=== PATIENT | female | born 1930 | race Caucasian/White ===

== ENCOUNTER 2019-05-14 11:31 | Inpatient (IN) | payer MEDICARE, OTHER ==
[~2019-05-14] VITALS: Ht 170.2 cm; Wt 56.7 kg
[2019-05-14] MEDS ORDERED: ADENOSINE 6 MG/2 ML VIAL ONE (11:44)
--- NOTE | 2019-05-14 11:44 | NUR ---
"Chest Pain started this am" Pt coole to touch [id number] on monitor" PT TO BED 5, PLACED PT ON MONITOR, MD AT BEDSIDE FOR EVAL
[2019-05-14 12:00] LABS: BASOPHILS # (AUTO) 0.1 /CMM (0.0-0.2); BASOPHILS % (AUTO) 0.6 % (0.0-2.0); EOSINOPHILS % (AUTO) 1.2 % (0.0-6.0); HEMATOCRIT 40 % (33-45); LYMPHOCYTES # (AUTO) 2.1 /CMM (0.8-4.8); LYMPHOCYTES % (AUTO) 23.1 % (20.0-44.0); MEAN CORPUSCULAR HGB CONC 33 g/dl (31.0-36.0); MEAN CORPUSCULAR VOLUME 88 fL (82-100); MONOCYTES # (AUTO) 0.5 /CMM (0.1-1.30); MONOCYTES % (AUTO) 5.8 % (2.0-12.0); NEUTROPHILS # (AUTO) 6.4 /CMM (1.8-8.9); NEUTROPHILS % (AUTO) 69.3 % (43.0-81.0); PLATELET COUNT (AUTO) 282 /CMM (150-450); RED BLOOD CELL COUNT(AUTO) 4.54 MIL/uL (4.0-5.2); WHITE BLOOD COUNT (AUTO) 9.2 K/uL (4.3-11.0)
[2019-05-14] MEDS ORDERED: IV NS 0.9% 500 ML BAG IV ONE (12:00)
[2019-05-14] MEDS ORDERED: ADENOSINE 6 MG/2 ML VIAL IVP ONE (12:00)
[2019-05-14 12:06] LABS: CALCIUM, SERUM 8.9 mg/dL (8.5-10.1); CARBON DIOXIDE 21 mmol/L (21-32); CHLORIDE 102 mmol/L (98-107); CREATININE 1.7 mg/dL (0.6-1.3); GLUCOSE 236 mg/dL (74-106); POTASSIUM 3.8 mmol/L (3.5-5.1); SODIUM SERUM 139 mmol/L (136-145); UREA NITROGEN, BLOOD 13 mg/dL (7-18)
--- NOTE | 2019-05-14 12:25 | NUR ---
DR ALY PAGEDari
[2019-05-14] MEDS ORDERED: ALEN70TA6 PO (12:31)
[2019-05-14] MEDS ORDERED: VITA1TAB15 PO (12:31)
[2019-05-14] MEDS ORDERED: MECL-102 PO (12:31)
[2019-05-14] MEDS ORDERED: ASPI-605 PO (12:31)
[2019-05-14] MEDS ORDERED: CALC-718 PO (12:31)
[2019-05-14] MEDS ORDERED: RIVA1PAT TD (12:31)
[2019-05-14] MEDS ORDERED: MEMA10TA PO (12:31)
[2019-05-14] MEDS ORDERED: SITA50TA PO (12:31)
[2019-05-14] MEDS ORDERED: METO50TA16 PO (12:31)
[2019-05-14] MEDS ORDERED: TRAM50TA2 PO (12:31)
[2019-05-14] MEDS ORDERED: QUET50TA PO (12:31)
[2019-05-14] MEDS ORDERED: MULT-1017 PO (12:31)
[2019-05-14] MEDS ORDERED: ONDA4TAB11 PO (12:31)
[2019-05-14] MEDS ORDERED: HYDR-4076 PO (12:31)
[2019-05-14] MEDS ORDERED: BRIN10DR EACHEYE (12:31)
[2019-05-14] MEDS ORDERED: CHOL20004 PO (12:31)
[2019-05-14 13:22] LABS: MAGNESIUM 1.4 mg/dL (1.8-2.4)
--- NOTE | 2019-05-14 13:34 | NUR ---
RECIEVED ROOM 104
--- NOTE | 2019-05-14 13:53 | NUR ---
report given to regan vines for merced pt will be transported to 1st floor
[2019-05-14 13:54] LABS: THYROID STIMULATING HORMONE 3.187 uIU/mL (0.358-3.74)
[2019-05-14 14:15] VITALS: BP 109/55
--- NOTE | 2019-05-14 14:15 | NUR ---
CERTIFIED PHLEBOTOMY TECHNICIAN NOTES OPENING (ADMISSION) RECEIVED PT FROM [facility]. PT IN ON 2 L NC NO LABORED BREATHING NOTED AT THIS TIME. REDNESS NOTED ON BILATERAL HEELS, PHOTO TAKEN. RAC 20G SL PATENT FLUSHED WELL WITH NS. ALL SAFETY MEASURES OBSERVED PUT BED ON LOWEST POSITION LOCKED, CALL LIGHT WITHIN REACH. PT HR IS 84 SINUS RHYTHM.WILL CONTINUE TO MONITOR.
[2019-05-14] MEDS ORDERED: ONDANSETRON 4 MG TAB.RAPDIS PO PRN (15:00)
[2019-05-14] MEDS ORDERED: TRAMADOL HCL 50 MG TABLET PO PRN (15:00)
[2019-05-14] MEDS ORDERED: DEXTROSE 50%-WATER 50 ML DISP.SYRIN IV PRN (15:00)
[2019-05-14 16:00] VITALS: BP 98/53
[2019-05-14] MEDS: Magnesium 1GM/D5W 100ML PREMIX 100 ML IV SCH ×2 (16:45→18:11)
[2019-05-14] MEDS ORDERED: hydrALAZINE HCL 25 MG TABLET PO SCH (17:00)
[2019-05-14] MEDS ORDERED: BRINZOLAMIDE 1 % OPHTH SOLN 10 ML BOTTLE EACHEYE SCH (17:00)
[2019-05-14] MEDS: BLOOD SUGAR DIAGNOSTIC 1 EACH STRIP IN SCH ×2 (17:26→22:22)
[2019-05-14] MEDS: DORZOLAMIDE OPTH 2% 10 ML BOTTLE EACHEYE SCH (17:27)
[2019-05-14] MEDS: MECLIZINE HCL 25 MG TABLET PO SCH (17:32)
[2019-05-14] MEDS: INSULIN REGULAR, HUMAN 100 UNIT/ML 3 ML VIAL SQ PRN ×2 (17:39→21:24)
[2019-05-14] MEDS: NITROGLYCERIN 30 GM TUBE TP SCH (17:45)
--- NOTE | 2019-05-14 19:00 | NUR ---
TAPE EDGE MACHINE OPERATOR NOTES PT SITTING IN BED A/O X 3. FAMILY AT BED SIDE. HR 84 SR. RIGHT AC 20 G FLUSHED WELL, INTACT. NO SIGNS OF SOB AND DISCOMFORT NOTED. PATIENT DENIES ANY PAIN. ALL SAFETY MEASURES OBSERVED, BED AT LOWEST POSITION LOCKED, CALL LIGHT WITHIN REACH, SIDE RAILS UP X2. ENDORSED TO VACUUM CLEANER ASSEMBLER NURSE.
--- NOTE | 2019-05-14 19:30 | NUR ---
SCIENCE SPECIALIST NOTE RECEIVED PATIENT WITH NO DISTRESS AND NO SIGNS OF PAIN OR ANY SOB. PATIENT IS ON 2L OF O2 WITH NASAL CANNULA ON TELE MONITOR WITH SINUS RHYTHM AND HR OF 80. HAS A RAC #20G PATENT AND FLUSHING WELL. PATIENT IS AMBULATORY WITH ASSISTANCE. ALL SAFETY PRECAUTIONS ARE APPLIED. BED IS LOW, SIDE RAILS UP X2, BED ALARMS ON AND CALL LIGHT WITHIN REACH. WILL CONTINUE TO MONITOR.
[2019-05-14 20:00] VITALS: BP 119/70
--- NOTE | 2019-05-14 20:10 | NUR ---
DRIVER/GUIDE NOTE CALLED DR COPELAND IN REGARDS TO PATIENTS TROPONIN LEVEL GOING UP. HE SAID LEVEL WAS EXPECTED AND THAT THERE IS NO ORDER NEEDED.
[2019-05-14] MEDS ORDERED: ENOXAPARIN SODIUM 40 MG/0.4 ML DISP.SYRIN SQ SCH (21:00)
[2019-05-14] MEDS ORDERED: METOPROLOL TARTRATE 25 MG TABLET PO SCH (21:00)
[2019-05-14] MEDS: QUETIAPINE FUMARATE 25 MG TABLET PO SCH (21:08)
[2019-05-14] MEDS: METOPROLOL TARTRATE 25 MG TABLET PO SCH (21:12)
[2019-05-14] MEDS: ENOXAPARIN SODIUM 30 MG/0.3 ML DISP.SYRIN SQ SCH (21:13)
[2019-05-15] VITALS: BP_SYST 155; BP_SYST 91; BP_DIAS 56; BP_DIAS 87
[2019-05-15] MEDS: NITROGLYCERIN 30 GM TUBE TP SCH ×4 (00:21→17:10)
[2019-05-15 04:00] VITALS: BP 107/58
[2019-05-15 06:20] LABS: BASOPHILS % (AUTO) 0.7 % (0.0-2.0); EOSINOPHILS % (AUTO) 2.9 % (0.0-6.0); HEMATOCRIT 32 % (33-45); HEMOGLOBIN 10.7 g/dL (11.5-14.8); LYMPHOCYTES % (AUTO) 36.1 % (20.0-44.0); MEAN CORPUSCULAR HGB CONC 33 g/dl (31.0-36.0); MEAN CORPUSCULAR VOLUME 86 fL (82-100); MONOCYTES # (AUTO) 0.4 /CMM (0.1-1.30); MONOCYTES % (AUTO) 6.6 % (2.0-12.0); NEUTROPHILS # (AUTO) 2.9 /CMM (1.8-8.9); NEUTROPHILS % (AUTO) 53.7 % (43.0-81.0); PLATELET COUNT (AUTO) 181 /CMM (150-450); RED BLOOD CELL COUNT(AUTO) 3.74 MIL/uL (4.0-5.2); WHITE BLOOD COUNT (AUTO) 5.5 K/uL (4.3-11.0)
[2019-05-15 06:41] LABS: ALANINE AMINOTRANSFERASE 9 U/L (12-78); ALBUMIN 2.6 g/dL (3.4-5.0); ALKALINE PHOSPHATASE 64 U/L (46-116); ASPARTATE AMINOTRANSFERASE 13 U/L (15-37); BILIRUBIN,TOTAL 0.5 mg/dL (0.2-1.0); CALCIUM, SERUM 8.1 mg/dL (8.5-10.1); CARBON DIOXIDE 25 mmol/L (21-32); CHLORIDE 104 mmol/L (98-107); CREATININE 1.7 mg/dL (0.6-1.3); GLUCOSE 115 mg/dL (74-106); MAGNESIUM 1.9 mg/dL (1.8-2.4); PHOSPHORUS 4.5 mg/dL (2.5-4.9); POTASSIUM 3.9 mmol/L (3.5-5.1); SODIUM SERUM 139 mmol/L (136-145); TOTAL PROTEIN, SERUM 6.4 g/dL (6.4-8.2); UREA NITROGEN, BLOOD 16 mg/dL (7-18)
--- NOTE | 2019-05-15 07:00 | NUR ---
RN NOTE RECEIVED PATIENT ON BED, ALERT, RESPONSE TO VERBAL STIMULI, DUTCH SPEAKING , PITER CHEST PAIN ,ON O2L O2 N/C , NO SOB NOTED ON TELE SR HR IN 60'S . R AC IV G 20 CLEAN, DRY AND INTACT, ALL SAFETY PRECAUTIONS ARE APPLIED. BED IS LOCKED AND IN LOWEST POSITION, SIDE RAILS UP X3, BED ALARMS ON AND CALL LIGHT WITHIN REACH. WILL CONTINUE TO MONITOR.
--- NOTE | 2019-05-15 07:12 | NUR ---
FILLER BLOCK INSERTER REMOVER CLOSING NOTE PATIENT IS SLEEPING IN BED WITH NO SIGNS OF DISTRESS. ALL SAFETY PRECAUTIONS ARE APPLIED WITH BED LOW, CALL LIGHT WITHIN REACH, BED ALARM ON. ENDORSED PATIENT TO AM NURSE.
[2019-05-15 08:00] VITALS: BP 124/58
[2019-05-15] MEDS: BLOOD SUGAR DIAGNOSTIC 1 EACH STRIP IN SCH ×4 (08:27→22:13)
[2019-05-15] MEDS: VITAMIN B COMP W-C 1 TAB TABLET PO SCH (08:28)
[2019-05-15] MEDS: ASPIRIN EC 81 MG TABLET.DR PO SCH (08:28)
[2019-05-15] MEDS: MULTIVIT W/MINERALS 1 TAB TABLET PO SCH (08:28)
[2019-05-15] MEDS: MEMANTINE HCL 5 MG TABLET PO SCH (08:28)
[2019-05-15] MEDS: LINAGLIPTIN 5 MG TABLET PO SCH (08:28)
[2019-05-15] MEDS: MECLIZINE HCL 25 MG TABLET PO SCH ×2 (08:28→16:17)
[2019-05-15] MEDS: CALCIUM CARB 600MG /VIT D 1 EACH TABLET PO SCH (08:29)
[2019-05-15] MEDS: PANTOPRAZOLE 40 MG TABLET.DR PO SCH (08:29)
[2019-05-15] MEDS: METOPROLOL TARTRATE 25 MG TABLET PO SCH ×2 (08:30→21:14)
[2019-05-15] MEDS: DORZOLAMIDE OPTH 2% 10 ML BOTTLE EACHEYE SCH ×2 (08:38→16:22)
[2019-05-15] MEDS: RIVASTIGMINE TARTRATE 4.6 MG PATCH.TD24 TD SCH (09:26)
[2019-05-15] MEDS: IV NS 0.9% 1,000 ML IV PRN ×2 (09:27→20:08)
[2019-05-15 12:00] VITALS: BP 110/49
--- NOTE | 2019-05-15 13:00 | NUR ---
RN NOTES TELEPHONE CONSENT OBTAINED FROM PT'S SON FOR STRESS TEST IN AM .
--- NOTE | 2019-05-15 14:00 | NUR ---
RN NOTES PT IS VERY FORGETFUL AND KEEP PULLING ON HER TELE BOX AND IV SITES AND TRYING TO GET OUT OF THE BED, PT REORIENTED TO ROOM AND SURROUNDING IN MALAGASY LANGUAGE. SR UP x3, CALL LIGHT WITHIN EASY REACH, BED ALARM ON . PT'S SON NOTIFED.CONTINUE TO MONITOR .
[2019-05-15 16:00] VITALS: BP 108/87
[2019-05-15] MEDS: INSULIN REGULAR, HUMAN 100 UNIT/ML 3 ML VIAL SQ PRN ×2 (17:12→21:46)
--- NOTE | 2019-05-15 18:00 | NUR ---
RN NOTES PT STABLE, SUPPORTIVE FAMILY AT THE BEDSIDE, VSS STABLE, PT IS CALM , WILL ENDORSE TO PRODUCTION SERVICE MANAGER NURSE FOR CONTINUITY OF CARE.
--- NOTE | 2019-05-15 19:06 | NUR ---
FAMILY REQUESTING SITTER,PATIENT PULL IV 2X FORGETFUL,HIGH RIDK FOR FALL,CALL LIGHT AT REACH,BED ALARM ON.SAFETY PRECAUTION OBSERVED. DR. ALY MADE AWARE,FAMILY DOESNOT WANT RESTRAIN,NURSING SUP MADE AWARE.
--- NOTE | 2019-05-15 19:30 | NUR ---
AIRCRAFT LOADMASTER SUPERINTENDENT OPENING NOTES RECEIVED PATIENT IN NO SIGN OF DISTRESS OR DISCOMFORT. AND DAUGHTER AT BEDSIDE. PATIENT IS ON ROOM AIR WITH NO SIGNS OF SOB. PATIENT ALSO HAS AN IV ACCESS ON RIGHT FOREARM WITH NS RUNNING AT 125ML/HR. PATIENT IS AMBULATORY WITH ASSISTANCE TO GO TO RESTROOM. PATIENT IS ON THE MONITOR WITH SINUS RHYTHM AND HR OF 79. ALL SAFETY PRECAUTIONS APPLIED BED PLACED IN LOW POSITION, BED ALARM ON, CALL LIGHT WITHIN REACH AND SIDE RAILS UP X3. WILL CONTINUE TO MONITOR
[2019-05-15 20:00] VITALS: BP 122/68
[2019-05-15] MEDS: QUETIAPINE FUMARATE 25 MG TABLET PO SCH (21:14)
[2019-05-15] MEDS: ENOXAPARIN SODIUM 30 MG/0.3 ML DISP.SYRIN SQ SCH (21:23)
--- NOTE | 2019-05-15 22:18 | NUR ---
RN NOTES 2099 PULLED OUT IV AND TELE MONITOR; SPOKE TO IC ENGINEER RE SITTER DUE TO FAMILY REFUSED RESTRAINTS. UNABLE TO FIND AT THE MOMENT; ANOTHER OPTION IS TO TRANSFER PATIENT TO ANOTHER ROOM TO COMBINE SITTERS. SPOKE TO FAMILY, KIMBERLY, REFUSED RESTRAINT AND TRANSFER. EXPLAINED TO HIM ABOUT SAFETY OF THE PATIENT. PRIMARY RN STAYS CLOSE TO HER ROOM TO PREVENT FALLS; BED ALARM IS ALSO ON BUT IT WILL NOT PREVENT HER FROM PULLING OUT IV AND TELE. FINALLY AGREED TO TRANSFER BUT NOT RESTRAINT EVEN JUST FOR THE NIGHT AND WILL HAVE A SITTER IN AM. LEIGHANN, IC ENGINEER MADE AWARE. 2114 UNABLE TO COMBINE WITH A SITTER PATIENT; STILL LOOKING FOR SITTER. FOR THE MEANTIME ASKED KIMBERLY IF OK TO USE MITTENS SINCE WE WILL NOT TRANSFER HER ANYMORE. FINALLY AGREED WITH MITTENS. INSERTED IV TO LEFT ARM AND CONNECTED BACK TO TELE MONITOR; WRAPPED IV SITE WITH KERLIX AND PUT ON ARM SLEEVES AND MITTENS. 2129 PATIENT AGITATED BECAUSE OF THE MITTENS; REMOVED MITTENS AND STAFF ALTERNATED IN SITTING WITH PATIENT TO PREVENT FROM PULLING OUT LINES; LEIGHANN; IC ENGINEER WILL SEND A SITTER SOON. PRIMARY RNJONY MADE AWARE.
--- NOTE | 2019-05-15 23:10 | NUR ---
RN NOTE SITTER AT BEDSIDE, PATIENT ASLEEP
[2019-05-16] VITALS: BP 123/60
[2019-05-16] MEDS: NITROGLYCERIN 30 GM TUBE TP SCH ×3 (00:11→13:24)
[2019-05-16 04:00] VITALS: BP 135/74
[2019-05-16] MEDS: IV NS 0.9% 1,000 ML IV PRN (05:03)
[2019-05-16 06:29] LABS: BASOPHILS % (AUTO) 0.7 % (0.0-2.0); EOSINOPHILS % (AUTO) 2.6 % (0.0-6.0); HEMATOCRIT 31 % (33-45); HEMOGLOBIN 10.4 g/dL (11.5-14.8); LYMPHOCYTES # (AUTO) 1.8 /CMM (0.8-4.8); LYMPHOCYTES % (AUTO) 38.5 % (20.0-44.0); MEAN CORPUSCULAR HGB CONC 34 g/dl (31.0-36.0); MEAN CORPUSCULAR VOLUME 86 fL (82-100); MONOCYTES # (AUTO) 0.4 /CMM (0.1-1.30); MONOCYTES % (AUTO) 7.4 % (2.0-12.0); NEUTROPHILS # (AUTO) 2.4 /CMM (1.8-8.9); NEUTROPHILS % (AUTO) 50.8 % (43.0-81.0); PLATELET COUNT (AUTO) 168 /CMM (150-450); RED BLOOD CELL COUNT(AUTO) 3.61 MIL/uL (4.0-5.2); WHITE BLOOD COUNT (AUTO) 4.7 K/uL (4.3-11.0)
[2019-05-16] MEDS: BLOOD SUGAR DIAGNOSTIC 1 EACH STRIP IN SCH ×2 (06:37→12:59)
[2019-05-16 06:38] LABS: CALCIUM, SERUM 8.1 mg/dL (8.5-10.1); CREATININE 1.3 mg/dL (0.6-1.3); MAGNESIUM 1.6 mg/dL (1.8-2.4)
--- NOTE | 2019-05-16 07:30 | NUR ---
POSTAL SERVICE SECTIONAL CENTER MANAGER CLOSING NOTE PATIENT ASLEEP IN BED WITH SITTER AT BEDSIDE. NO SIGNS OF ANY DISTRESS OR DISCOMFORT. PATIENT WITH THE LEFT FOREARM IV WITH NS RUNNING AT 125ML/HR. ALL SAFETY PRECAUTIONS APPLIED BED ALARM ON, CALL LIGHT WITHIN REACH, AND SIDE RAILS UP X 3. ENDORSED PATIENT TO MORNING NURSE.
--- NOTE | 2019-05-16 07:56 | NUR ---
ARCHITECTURAL WOOD MODEL MAKER NOTES OPENING RECEIVED PT IN SLEEPING A/O X2. SITTER AT BED SIDE. NO SIGNS OF DISTRESS OR DISCOMFORT NOTED AT THIS TIME. PATIENT WITH THE LEFT FOREARM IV # 20 WITH NS RUNNING AT 125ML/HR. ALL SAFETY MEASURED OBSERVED AND APPLIED BED ALARM ON, BED LOCKED AT THE LOWEST POSITION, CALL LIGHT WITHIN REACH, SIDE RAILS UP X 3. PT ON NPO ORDER, PO MEDS HELD. PT BP [id number] AND METOPROLOL GIVEN WITH SMALL AMOUNT OF WATER , DENNIS STATED OK TO GIVE. PT WILL HAVE STRESS TEST. DENNIS AND DR SCHAFFER AT BED SIDE.
[2019-05-16] MEDS ORDERED: REGADENOSON 0.4 MG/5 ML DISP.SYRIN IVP ONE (08:00)
[2019-05-16] MEDS: METOPROLOL TARTRATE 25 MG TABLET PO SCH (08:08)
[2019-05-16] MEDS ORDERED: Magnesium 1GM/D5W 100ML PREMIX 100 ML IV SCH (08:11)
[2019-05-16] MEDS: CALCIUM CARB 600MG /VIT D 1 EACH TABLET PO SCH (10:13)
[2019-05-16] MEDS: MECLIZINE HCL 25 MG TABLET PO SCH (10:13)
[2019-05-16] MEDS: LINAGLIPTIN 5 MG TABLET PO SCH (10:13)
[2019-05-16] MEDS: MULTIVIT W/MINERALS 1 TAB TABLET PO SCH (10:13)
[2019-05-16] MEDS: MEMANTINE HCL 5 MG TABLET PO SCH (10:13)
[2019-05-16] MEDS: DORZOLAMIDE OPTH 2% 10 ML BOTTLE EACHEYE SCH (10:14)
[2019-05-16] MEDS: ASPIRIN EC 81 MG TABLET.DR PO SCH (10:14)
[2019-05-16] MEDS: VITAMIN B COMP W-C 1 TAB TABLET PO SCH (10:17)
[2019-05-16] MEDS: PANTOPRAZOLE 40 MG TABLET.DR PO SCH (10:17)
[2019-05-16] MEDS: RIVASTIGMINE TARTRATE 4.6 MG PATCH.TD24 TD SCH (11:37)
[2019-05-16] MEDS: INSULIN REGULAR, HUMAN 100 UNIT/ML 3 ML VIAL SQ PRN (13:05)
[2019-05-16 13:24] VITALS: BP 143/73
[2019-05-16] MEDS ORDERED: Magnesium 1GM/D5W 100ML PREMIX PIGGYBACK IV ONE (13:30)
[2019-05-16] MEDS ORDERED: METOPROLOL TARTRATE 25 MG TABLET PO SCH (21:00)
[2019-05-19] MEDS ORDERED: ALENDRONATE 70 MG TABLET PO SCH (07:30)
[2019-05-19] MEDS ORDERED: ERGOCALCIFEROL (VITAMIN D 2) 50,000 UNIT CAPSULE PO SCH (09:00)
== END 2019-05-16 14:29 | disposition home or self-care (01) | DRG 280 ==
LOC: ER 11:33 → TELE1 13:38
PROVIDERS: ADMIT Legal Medicine; ATTEND Legal Medicine
DX: I47.1 Supraventricular tachycardia (principal); I21.A1 Myocardial infarction type 2; N17.0 Acute kidney failure with tubular necrosis; I12.9 Hypertensive chronic kidney disease with stage 1 through stage 4 chronic kidney disease, or unspecified chronic kidney disease; E11.22 Type 2 diabetes mellitus with diabetic chronic kidney disease; N18.9 Chronic kidney disease, unspecified; E83.42 Hypomagnesemia; M81.0 Age-related osteoporosis without current pathological fracture; Z90.710 Acquired absence of both cervix and uterus; F03.90 Unspecified dementia, unspecified severity, without behavioral disturbance, psychotic disturbance, mood disturbance, and anxiety; E11.21 Type 2 diabetes mellitus with diabetic nephropathy; Z79.84 Long term (current) use of oral hypoglycemic drugs
CPT/HCPCS: 36415; 71045-TC; 80048-TC; 80053-TC; 82962-TC; 83735-TC; 84100-TC; 84443-TC; 84484-TC; 85025-TC; 87081-TC; 93307-TC; 97116-TC; 97530-TC; A9502; G0378; J0153; J1650; J1815; J2785; J3475; J7030; J8597